=== PATIENT | female | born 1965 | race Hispanic/Latino ===

== ENCOUNTER 2023-09-30 13:32 | Outpatient (CLI) | payer OTHER | END 2023-09-30 13:33 | disposition home or self-care (01) | LOC: MADRAD 13:32 | PROVIDERS: ATTEND Physician Assistant | DX: M79.2 Neuralgia and neuritis, unspecified (principal); M47.816 Spondylosis without myelopathy or radiculopathy, lumbar region | CPT/HCPCS: 72100 ==